=== PATIENT | female | born 1970 | race Caucasian/White ===

== ENCOUNTER 2024-04-01 20:12 | Emergency (ER) | payer OTHER ==
[~2024-04-01] VITALS: Ht 160 cm; Wt 97.5 kg
[2024-04-01 21:13] LABS: STREPTOCOCCUS GRP A ANTIGEN NEGATIVE (NEGATIVE)
[2024-04-01 21:32] LABS: INFLUENZAE A&B ANTIGEN (RAPID) NEGATIVE (NEGATIVE)
[2024-04-01] MEDS ORDERED: PAXLOVID 300-11 EAC1 PO (22:01)
[2024-04-01] MEDS ORDERED: PREDNISONE20 MG PO (22:01)
[2024-04-01 22:02] VITALS: PULSE 76; RESP 18; TEMP 98.5; O2SAT 100
[2024-04-01] MEDS ORDERED: VENTOLIN HFA18 GM INH (22:04)
== END 2024-04-01 22:01 | disposition home or self-care (01) ==
LOC: ER 20:17
DX: R05.9 Cough, unspecified (principal); U07.1 COVID-19; E11.9 Type 2 diabetes mellitus without complications; R53.81 Other malaise; J45.909 Unspecified asthma, uncomplicated
CPT/HCPCS: 83518; 87070; 87400; 99283; U0002

== ENCOUNTER 2024-07-22 02:39 | Emergency (ER) | payer OTHER ==
[~2024-07-22] VITALS: Ht 160 cm; Wt 97.5 kg
[~2024-07-22 02:39] MED LIST: PAXLOVID 300-11 EAC1 PO; PREDNISONE20 MG PO; VENTOLIN HFA18 GM INH
[2024-07-22] MEDS ORDERED: NAPROSYN500 MG PO (04:06)
[2024-07-22] MEDS ORDERED: ORPHENADRINE C100 MG PO (04:06)
[2024-07-22] MEDS: KETOROLAC TROMETHAMINE 60 MG/2 ML VIAL IM ONE (04:15)
[2024-07-22 04:44] VITALS: PULSE 65; RESP 16; TEMP 98.3; O2SAT 97
== END 2024-07-22 04:45 | disposition home or self-care (01) ==
LOC: ER 02:45
DX: S16.1XXA Strain of muscle, fascia and tendon at neck level, initial encounter (principal); V43.52XA Car driver injured in collision with other type car in traffic accident, initial encounter; Y92.488 Other paved roadways as the place of occurrence of the external cause; E11.65 Type 2 diabetes mellitus with hyperglycemia; J45.909 Unspecified asthma, uncomplicated; F31.9 Bipolar disorder, unspecified
CPT/HCPCS: 36415; 70450; 72125; 82948; 99283; J1885

== ENCOUNTER 2024-11-22 23:08 | Observation (INO) | payer OTHER ==
[~2024-11-22] VITALS: Ht 160 cm; Wt 93.4 kg
[~2024-11-22 23:08] MED LIST changes: +NAPROSYN500 MG PO; +ORPHENADRINE C100 MG PO
[2024-11-22] MEDS: Morphine 4mg INJECTION 4 MG/ML INJ IV STA (23:59)
[2024-11-22] MEDS: ONDANSETRON HCL INJ 2MG/ML 2ML 2 MG/ML VIAL IV STA (23:59)
[2024-11-23] VITALS (9 sets, daily range): BP systolic 102–119; BP diastolic 62–74; PULSE 61–76; RESP 16–19; TEMP 98–98.3; O2SAT 96–100
[2024-11-23] MEDS: SODIUM CHLORIDE 0.9% 1000ML 1,000 ML IV STA
[2024-11-23 00:17] LABS: BASOPHILS # (AUTO) 0.1 (0.0-0.1); BASOPHILS % 0.7 % (0.0-1.0); EOSINOPHILS # (AUTO) 0.5 (0.0-0.4); EOSINOPHILS % 7.4 % (0.0-6.0); HEMATOCRIT 35.8 % (34.2-44.1); HEMOGLOBIN 11.9 g/dL (12.0-16.0); LYMPHOCYTES % 28.4 % (18.0-39.1); MEAN CORPUSCULAR HEMOGLOBIN 28.5 pg (28-32); MEAN CORPUSCULAR HGB CONC 33.2 g/dL (31-35); MEAN CORPUSCULAR VOLUME 85.9 fL (81-99); MONOCYTES # (AUTO) 0.4 (0.2-0.8); MONOCYTES % 5.4 % (4.4-11.3); NEUTROPHILS # (AUTO) 4.1 (2.1-6.9); NEUTROPHILS % 57.8 % (38.7-80.0); PLATELET COUNT 234 x10e3/uL (140-360); RED BLOOD COUNT 4.17 x10e6/uL (3.6-5.1); RED CELL DISTRIBUTION WIDTH 13.2 % (11.7-14.4); WHITE BLOOD COUNT 7.07 x10e3/uL (4.8-10.8)
[2024-11-23 00:29] LABS: BILIRUBIN,URINE NEGATIVE (NEGATIVE); CLARITY,URINE CLOUDY (CLEAR); COLOR,URINE YELLOW (YELLOW); GLUCOSE, URINE NEGATIVE (NEGATIVE); KETONES,URINE NEGATIVE (NEGATIVE); LEUKOCYTE ESTERASE ,URINE 1+ (NEGATIVE); NITRITE,URINE NEGATIVE (NEGATIVE); PH,URINE 5.5 (5 - 7); PROTEIN,URINE DIPSTICK NEGATIVE (NEGATIVE); URINE UROBILINOGEN 1 mg/dL (0.2 - 1)
[2024-11-23 00:42] LABS: ALANINE AMINOTRANSFERASE 27 IU/L (0-55); ALBUMIN 3.7 g/dL (3.5-5.0); ALKALINE PHOSPHATASE 78 IU/L (40-150); ANION GAP 16.3 mmol/L (8-16); BILIRUBIN,TOTAL 0.3 mg/dL (0.2-1.2); BLOOD UREA NITROGEN 14 mg/dL (7-26); BUN/CREATININE RATIO 22 (6-25); CALCIUM 9.5 mg/dL (8.4-10.2); CARBON DIOXIDE 23 mmol/L (22-29); CHLORIDE 104 mmol/L (98-107); CREATINE KINASE 22 IU/L (29-168); CREATININE, SERUM 0.65 mg/dL (0.57-1.11); EST GLOMERULAR FILTRATION RATE 105 ML/MIN (>=60); GLUCOSE 114 mg/dL (74-118); LIPASE 65 U/L (8-78); POTASSIUM 4.3 mmol/L (3.5-5.1); SODIUM 139 mmol/L (136-145); TOTAL PROTEIN 7.4 g/dL (6.5-8.1)
[2024-11-23 00:58] LABS: BACTERIA,URINE MANY /HPF; EPITHELIAL CELLS,URINE MANY /LPF; WBC,URINE (MAN) 21-50 /HPF (0-5)
[2024-11-23 00:59] LABS: MUCUS,URINE MODERATE
[2024-11-23 01:02] LABS: TROPONIN I < 0.001 ng/mL (0-0.300)
[2024-11-23] MEDS: KETOROLAC TROMETHAMINE 30 MG/ML VIAL IV STA (01:23)
[2024-11-23] MEDS: SODIUM CHLORIDE 0.9% 1000ML 1,000 ML IV SCH (01:56)
[2024-11-23] MEDS ORDERED: LISINOPRIL10 MG PO (04:24)
[2024-11-23] MEDS ORDERED: METFORMIN HCL1000 MG PO (04:24)
[2024-11-23] MEDS ORDERED: ATORVASTATIN CA10 MG PO (04:24)
[2024-11-23] MEDS ORDERED: HYDROXYZINE HCL10 MG PO (04:24)
[2024-11-23] MEDS ORDERED: TRAZODONE HCL50 MG PO (04:24)
[2024-11-23] MEDS ORDERED: LAMOTRIGINE25 MG PO (04:24)
[2024-11-23] MEDS: ONDANSETRON HCL INJ 2MG/ML 2ML 2 MG/ML VIAL IV PRN (05:36)
[2024-11-23] MEDS: Morphine 4mg INJECTION 4 MG/ML INJ IV PRN (05:36)
[2024-11-23 05:45] LABS: AMPHETAMINES SCREEN,URINE NEGATIVE (NEGATIVE); BENZODIAZEPINES SCREEN,URINE NEGATIVE (NEGATIVE); CANNABINOIDS SCREEN,URINE NEGATIVE (NEGATIVE); COCAINE SCREEN,URINE NEGATIVE (NEGATIVE); METHADONE SCREEN, URINE NEGATIVE (NEGATIVE); OPIATES SCREEN,URINE NEGATIVE (NEGATIVE); PHENCYCLIDINE SCREEN,URINE NEGATIVE (NEGATIVE)
[2024-11-23] MEDS ORDERED: ALBUTEROL SULF 0.083% NEB SOLN 3 ML NEB INH PRN (13:45)
[2024-11-23] MEDS ORDERED: DEXTROSE 50% SYRINGE 50 ML IV PRN (13:45)
[2024-11-23] MEDS ORDERED: HYDROXYZINE HCL 10 MG TAB PO PRN (13:45)
[2024-11-23] MEDS: INSULIN REGULAR, HUMAN 100 UNIT/1 ML SQ SCH (15:40)
[2024-11-23] MEDS: METFORMIN HCL 500 MG TAB PO SCH (17:19)
[2024-11-23] MEDS: LAMOTRIGINE 25 MG TAB PO SCH (22:31)
[2024-11-23] MEDS: ATORVASTATIN 10 MG TAB PO SCH (22:31)
[2024-11-23] MEDS: LISINOPRIL 10 MG TAB PO SCH (22:32)
[2024-11-23] MEDS: TRAZODONE HCL 50 MG TAB PO SCH (22:32)
[2024-11-24] VITALS: BP 116/67; PULSE 76; RESP 19; TEMP 98.2; O2SAT 99
[2024-11-24 04:00] VITALS: BP 121/71; PULSE 69; RESP 19; TEMP 98.1; O2SAT 98
[2024-11-24 05:25] LABS: BASOPHILS % 0.4 % (0.0-1.0); EOSINOPHILS # (AUTO) 0.3 (0.0-0.4); EOSINOPHILS % 5.9 % (0.0-6.0); HEMATOCRIT 30.8 % (34.2-44.1); LYMPHOCYTES # (AUTO) 1.9 (1.0-3.2); MEAN CORPUSCULAR HEMOGLOBIN 28.4 pg (28-32); MEAN CORPUSCULAR HGB CONC 32.5 g/dL (31-35); MEAN CORPUSCULAR VOLUME 87.5 fL (81-99); MONOCYTES # (AUTO) 0.4 (0.2-0.8); MONOCYTES % 6.4 % (4.4-11.3); NEUTROPHILS # (AUTO) 2.9 (2.1-6.9); NEUTROPHILS % 52.1 % (38.7-80.0); PLATELET COUNT 182 x10e3/uL (140-360); RED BLOOD COUNT 3.52 x10e6/uL (3.6-5.1); RED CELL DISTRIBUTION WIDTH 13.2 % (11.7-14.4); WHITE BLOOD COUNT 5.46 x10e3/uL (4.8-10.8)
[2024-11-24 05:47] LABS: ALBUMIN/GLOBULIN RATIO 1.1 (0.8-2.0); ANION GAP 10.9 mmol/L (8-16); BILIRUBIN,TOTAL 0.3 mg/dL (0.2-1.2); CALCIUM 8.3 mg/dL (8.4-10.2); CREATININE, SERUM 0.73 mg/dL (0.57-1.11); POTASSIUM 3.9 mmol/L (3.5-5.1); TOTAL PROTEIN 5.7 g/dL (6.5-8.1)
[2024-11-24 08:00] VITALS: BP 130/73; PULSE 55; RESP 18; TEMP 98.3; O2SAT 99
[2024-11-24 08:37] VITALS: BP 130/73; PULSE 89; RESP 18; TEMP 98.3; O2SAT 98
[2024-11-24 09:19] VITALS: PULSE 73; RESP 18; O2SAT 97
[2024-11-24] MEDS ORDERED: CEFUROXIME250 MG PO (11:53)
[2024-11-24 12:00] VITALS: BP 104/67; PULSE 65; RESP 18; TEMP 98.2; O2SAT 100
== END 2024-11-24 14:55 | disposition home or self-care (01) ==
LOC: ER 23:19 → MED/SURG 11-23 01:42
PROVIDERS: ADMIT Internal Medicine; ATTEND Internal Medicine
DX: N12 Tubulo-interstitial nephritis, not specified as acute or chronic (principal); I10 Essential (primary) hypertension; E11.9 Type 2 diabetes mellitus without complications; F31.9 Bipolar disorder, unspecified; E78.00 Pure hypercholesterolemia, unspecified; Z91.041 Radiographic dye allergy status; Z79.84 Long term (current) use of oral hypoglycemic drugs; Z79.1 Long term (current) use of non-steroidal anti-inflammatories (NSAID); Z79.899 Other long term (current) drug therapy
CPT/HCPCS: 36415 ×2; 74176; 76705; 76857; 80053 ×2; 80307; 82550; 82948 ×2; 83036; 83690; 84443; 84484; 85025 ×2; 87086; 87186; 93005; 94799 ×2; 99252; 99284; G0378 ×2; J1885; J2270 ×3; J2405 ×3; J2543 ×2; J7030 ×3; 81001